=== PATIENT | female | born 1965 | race Two or more races ===

== ENCOUNTER → 2016-03-14 | Outpatient (CLI) | payer OTHER ==
--- NOTE | 2016-03-14 09:38 | MA ---
Right Diagnostic Digital Mammogram with iCAD Clinical Indications: Asymmetric nodule on recent screening mammogram. Technique: Digital spot compression CC, spot mediolateral oblique and true lateral views. This exami nation was processed by the iCAD computer-aided detection system. Comparison: Recent mammogram. February 2016. Breast Density: 3, 50-75%. Findings: Previous focal asymmetry identified is no longer detected on the additional views or true l ateral views. This is consistent with normal overlapping breast parenchyma. Impression: ACR BI-RADS 2: Benign right mammogram. Recommendation: Annual mammograms with next screening mammograms in February 2017. [facility] will send a result letter to the patient. Negative mammography should not preclude additional workup of a clinically suspicious finding. Findings and recommendations have been discussed with the patient who agrees with the plan. The patient's information is entered into a reminder system with a target due date for her next mammo gram.
== END ==
LOC: BRMIMAGING 09:06
PROVIDERS: ATTEND Family Medicine
DX: R92.8 Other abnormal and inconclusive findings on diagnostic imaging of breast (principal)
CPT/HCPCS: G0206